=== PATIENT | female | born 1940 | race African-American/Black ===

== ENCOUNTER 2022-03-04 17:56 | Emergency (ER) | payer OTHER ==
--- OUTSIDE RECORDS SUMMARY | 2022-03-04 18:12 | XMS REPORT | Continuity of Care Document ---
:1940 Author Organization [facility] t Address [address] [place] [address] Care Team Providers Name Role Phone Jacob Pugh Primary Care Physician Everett Ac MD Attending Clinician EVERETT AC Attending Clinician Unavailable EVERETT AC Attending Clinician Unavailable Doctor Unassigned, [place] Attending Clinician Unavailable Payers Payer Name Policy Type Policy Number Effective Date Expiration Date S ource Problems Condition Condition Condition Status Onset Resolution Last Treating Co mments Source Name Details Category Date Date Treatment Clinician Date No known No known Disease Unive rs active active ity of problems problems [facility] Allergies, Adverse Reactions, Alerts This patient has no known allergies or adverse reactions. Social History Social Habit Start Date Stop Date Quantity Comments Source Exposure to 2021-07-24 2021-08-23 Not sure [facility] SARS-CoV-2 (event) 00:00:00 09:06:00 Medica l Branch Sex Ass[birth year] At [birth year] [facility] 00:00:00 00:00:00 Medical Branch Smoking Status Start Date Stop Date Source Tobacco smoking consumption [facility] Medical unknown Branch Medications Ordered Filled Start Stop Current Ordering Indication Dosage Frequency Signature Comments Components Source Medication Medication Date Date Medication? Clinician (SIG) Name Name diclofenac Yes 50mg Take 1 Unive rs 50 mg EC 8-09 tablet by ity of tablet 00:00: mouth in [place] 00 the Medical morning Branch and 1 tablet in the evening. DICLOFENAC Yes [id number] TAKE 1 Univers 50 mg 7-25 [id number] TABLET BY ity of tablet 00:00: MOUTH 00 TWICE Medical DAILY Branch DICLOFENAC 2021-0 Yes [id number] TAKE 1 Univers 50 mg 7-25 [id number] TABLET BY ity of tablet 00:00: MOUTH TWICE Medical DAILY Branch diclofenac 2021-0 Yes [id number] 50mg Take 1 Univers 50 mg 4-12 [id number] tablet by ity of tablet 00:00: mouth 2 [place] 00 (two) Medical times Branch daily. diclofenac 2021-0 Yes [id number] 50mg Take 1 Univers 50 mg 4-12 [id number] tablet by ity of tablet 00:00: mouth 2 [place] 00 (two) Medical times Branch daily. diclofenac 2021-0 2022- No [id number] 50mg Take 1 Univers 50 mg 4-12 07-25 [id number] tablet by ity of tablet 00:00: 00:00 mouth 2 [place] 00 :00 (two) Medical times Branch daily. COMBIGAN 2021-0 Yes Univers 0.2-0.5 % 4-08 ity of ophthalmic 00:00: [place] drops 00 Medical Branch COMBIGAN 2021-0 Yes Univers 0.2-0.5 % 4-08 ity of ophthalmic 00:00: [place] drops 00 Medical Branch COMBIGAN 2021-0 Yes Univers 0.2-0.5 % 4-08 ity of ophthalmic 00:00: [place] drops 00 Medical Branch COMBIGAN 2021-0 Yes Univers 0.2-0.5 % 4-08 ity of ophthalmic 00:00: [place] drops 00 Medical Branch gabapentin 2021-0 Yes 300mg Take 300 Un [place] 300 mg 3-07 mg by ity of capsule 00:00: mouth at [place] [address] bedtime. Medical Branch gabapentin 2021-0 Yes 300mg Take 300 Un [place] 300 mg 3-07 mg by ity of capsule 00:00: mouth at [place] [address] bedtime. Medical Branch gabapentin 2021-0 Yes 300mg Take 300 Un [place] 300 mg 3-07 mg by ity of capsule 00:00: mouth at [place] [address] bedtime. Medical Branch gabapentin 2021-0 Yes 300mg Take 300 Un [place] 300 mg 3-07 mg by ity of capsule 00:00: mouth at [place] [address] bedtime. Medical Branch guanFACINE 2021-0 Yes 2mg Take 2 mg Un [place] 2 mg tablet 2-22 by mouth ity of 00:00: every [place] [address] morning. Medical Branch guanFACINE 2021-0 Yes 2mg Take 2 mg Un [place] 2 mg tablet 2-22 by mouth ity of 00:00: every [place] 00 morning. Medical Branch guanFACINE 2021-0 Yes 2mg Take 2 mg Un [place] 2 mg tablet 2-22 by mouth ity of 00:00: every [place] 00 morning. Medical Branch guanFACINE 2021-0 Yes 2mg Take 2 mg Un [place] 2 mg tablet 2-22 by mouth ity of 00:00: every [place] 00 morning. Medical Branch atorvastati Yes 40mg Take 40 mg Univers n 40 mg 2-14 by mouth ity of tablet 00:00: every [place] morning. Medical Branch atorvastati 0 Yes 40mg Take 40 mg Univers n 40 mg 2-14 by mouth ity of tablet 00:00: every [place] morning. Medical Branch atorvastati 2021-0 Yes 40mg Take 40 mg Univers n 40 mg 2-14 by mouth ity of tablet 00:00: every [place] morning. Medical Branch atorvastati 0 Yes 40mg Take 40 mg Univers n 40 mg 2-14 by mouth ity of tablet 00:00: every [place] morning. Medical Branch Vital Signs Vital Name Observation Time Observation Value Comments Source Systolic blood 2021-08-23 15:18:00 157 [facility]Hg[facility] pressure [facility] Diastolic blood 2021-08-23 15:18:00 74 mm[Hg] [facility] pressure [facility] Heart rate 2021-08-23 14:17:00 73 /min [facility] Body height 2021-08-23 14:17:00 157.5 cm [facility] Body weight 2021-08-23 14:17:00 61.236 kg [facility] BMI 2021-08-23 14:17:00 24.69 kg/m2 [facility] Oxygen saturation 2021-08-23 14:17:00 100 /min [facility] in Arterial blood Medical Br anch by Pulse oximetry Procedures This patient has no known procedures. Encounters Start End Encounter Admission Attending Care Care Encounter Source Date/Time Date/Time Type Type Clinicians Facility Department ID 2021-12-20 2021-12-20 Telephone Osorio [facility] [id number] [id number] Univers 00:00:00 00:00:00 [facility] [id number] ity of [place] [id number] Manuel as JAROD?BLEA [id number] [address] OFFICE [facility] 2021-12-03 2021-12-03 [facility] [id number] Univers 00:00:00 00:00:00 [facility] [id number] ity of [place] [id number] Manuel as JAROD?BLEA [id number] [address] 2021-10-17 2021-10-17 [facility] [id number] Univers 00:00:00 00:00:00 [facility] [id number] ity of [place] [id number] Manuel as JAROD?BLEA [id number] [address] 2021-08-26 2021-08-26 Telephone Osorio [facility] [id number] [facility] 00:00:00 00:00:00 [facility] [id number] ity of [place] [id number] Manuel as JAROD?BLEA [id number] [address] 2021-08-23 2021-08-23 Outpatient R EVERETT AC [facility] [id number] Univers 09:20:00 10:07:42 EVERETT AC ity of [facility] 2021-08-23 2021-08-23 Office Osorio [facility] [id number] Univers 09:20:00 10:07:42 Visit [facility] [id number] ity of [place] [id number] Manuel as JAROD?BLEA [id number] [address] OFFICE BUILDING 2021-08-23 2021-08-23 Orders Doctor MAGGIE [id number] [id number] Univers 00:00:00 00:00:00 Only Unassigned, GABE [id number] ity of [place] [facility] [id number] Manuel as [id number] [place] [address] Branch Results This patient has no known results.
[2022-03-04] MEDS ORDERED: ONDANSETRON 4 MG (ODT) TAB ONE (18:14)
[2022-03-04] MEDS ORDERED: MORPHINE 4 MG/ML SYR ONE (18:14)
[2022-03-04] MEDS ORDERED: GABAPENTIN 100 MG CAP ONE (19:51)
--- NOTE | 2022-03-04 19:51 | ER ---
Nurse's Notes [facility] Name: Madison Henley Age: 81 yrs Sex: Female : 1940 Arrival Date: 03/04/2022 Time: 17:59 Bed 13 Private MD: Jacob Suggs V Diagnosis: Herpes Zoster Presentation: 03/04 18:06 Chief complaint: Shingles rash on left face, neck and arm x 3 weeks, reports pain has hb become severe, despite Neurontin, Tramadol, valacyclovir, and dexmathasone. Coronavirus screen: At this time, the client does not indicate any symptoms associated with coronavirus-19. Ebola Screen: No symptoms or risks identified at this time. Initial Sepsis Screen: Does the patient meet any 2 criteria? No. Patient's initial sepsis screen is negative. Does the patient have a suspected source of infection? No. Patient's initial sepsis screen is negative. Risk Assessment: Do you want to hurt yourself or someone else? Patient reports no desire to harm self or others. Onset of symptoms was February 2022. 18:06 Method Of Arrival: Ambulatory hb 18:06 Acuity: SIMONE 3 hb Historical: - Allergies: 18:08 No Known Allergies; hb - Immunization history:: Adult Immunizations up to date. - Social history:: Smoking status: Patient denies any tobacco usage or history of. Screenin:15 Abuse screen: Denies threats or abuse. Denies injuries from another. Nutritional ko1 screening: No deficits noted. Tuberculosis screening: No symptoms or risk factors identified. Fall Risk None identified. Assessment: 18:15 General: Appears distressed, uncomfortable, Behavior is calm, cooperative, appropriate ko1 for age. Pain: Complains of pain in left sternocleidomastoid, left lateral aspect of neck and throat shingles breakout. Neuro: No deficits noted. Cardiovascular: No deficits noted. Respiratory: No deficits noted. GI: No deficits noted. : No deficits noted. EENT:. Derm: No deficits noted. Derm: shingles outbreak on neck. Musculoskeletal: No deficits noted. Vital Signs: 18:06 BP 175 / 91; Pulse 100; Resp 20; Temp 98.7; Pulse Ox 97% on R/A; Weight 49.9 kg; Height hb 5 ft. 3 in. (160.02 cm); Pain 10/10; 18:15 BP 142 / 82; Pulse 99; Resp 18; Pulse Ox 96% on R/A; Pain 10/10; ko1 19:47 BP 149 / 80; Pulse 65; Resp 19; Pulse Ox 95% on R/A; ke1 18:06 Body Mass Index 19.49 (49.90 kg, 160.02 cm) ED Course: 17:59 Patient arrived in ED. mr 18:00 Jacob Suggs MD is Private Physician. mr 18:04 Meet Bender [facility] 18:04 Den Giang MD is Attending Physician. [facility] 18:05 Ailyn Ballesteros, RN is Primary Nurse. ko1 18:08 Triage completed. hb 18:08 Arm band placed on. hb 18:15 Patient has correct armband on for positive identification. Bed in low position. Call ko1 light in reach. Side rails up X 1. Adult w/ patient. 19:57 Attending Physician role handed off by Den Giang MD [facility] 19:57 Sven Owusu MD is Attending Physician. [facility] 20:09 No provider procedures requiring assistance completed. Patient did not have IV access ke1 during this emergency room visit. Administered Medications: 18:21 Drug: morphine 4 mg Route: IM; Site: right gluteus; ko1 18:21 Drug: Ondansetron 4 mg Route: PO; ko1 19:59 Drug: Gabapentin 100 mg Route: PO; ke1 20:10 Follow up: Response: Medication administered at discharge. ke1 19:59 Drug: traMADol 25 mg Route: PO; ke1 20:10 Follow up: Response: Medication administered at discharge. ke1 19:59 Drug: Lidocaine Gel 2 % 1 application Route: Mucous Membrane; ke1 Medication: 20:09 VIS not applicable for this client. ke1 Outcome: 19:50 Discharge ordered by . [facility] 20:09 Discharged to home ambulatory. ke1 20:09 Condition: good 20:09 Discharge instructions given to patient. 20:11 Patient left the ED. ke1 Signatures: Sven Owusu MD MD cha Mickail, Joel, PA PA [facility] AugustMadison mr Violette Palma, DEEPAK SOTELO Lainey León RN RN ke Ailyn Ballesteros RN RN ko1 Corrections: (The following items were deleted from the chart) 18: 18:06 Acuity: SIMONE 4 hb hb 18: 18:06 Chief complaint: Shingles rash on left face, neck and arm x 3 weeks, reports pain hb has become severe. hb
--- NOTE | 2022-03-04 19:51 | EDPHYS ---
Physician Documentation [facility] Name: Madison Henley Age: 81 yrs Sex: Female : 1940 Arrival Date: 03/04/2022 Time: 17:59 Bed 13 Private MD: Jacob Suggs V ED Physician Sven Owusu HPI: 03/04 18:04 This 81 yrs old Black Female presents to ER via Ambulatory with complaints of Shingles. jm 18:04 Onset: The symptoms/episode began/occurred gradually, 3 week(s) ago. This is an [facility] 81-year-old female the presents emergency department with complaints of ongoing pain secondary to shingles. Symptoms initially started 3 weeks ago. Patient is currently on a course of Valtrex, Decadron, gabapentin, tramadol without relief of pain. Patient states that she does not tolerate the gabapentin well due to increased dizziness and sleepiness on the medication.. Historical: - Allergies: 18:08 No Known Allergies; hb - Immunization history:: Adult Immunizations up to date. - Social history:: Smoking status: Patient denies any tobacco usage or history of. ROS: 18:04 Constitutional: Negative for fever, chills, and weight loss, Cardiovascular: Negative jmm for chest pain, palpitations, and edema, Respiratory: Negative for shortness of breath, cough, wheezing, and pleuritic chest pain. 18:04 Skin: Positive for rash. 18:04 All other systems are negative. Exam: 18:04 Constitutional: This is a well developed, well nourished patient who is awake, alert, jmm and in no acute distress. Head/Face: atraumatic. Eyes: EOMI, no conjunctival erythema appreciated ENT: Moist Mucus Membranes 18:04 Chest/axilla: Normal chest wall appearance and motion. Cardiovascular: Regular rate and rhythm. No edema appreciated Respiratory: Normal respirations, no respiratory distress appreciated Abdomen/GI: Non distended Back: Normal ROM 18:04 Neck: Healing herpetic lesions noted to the left side of the neck. 18:04 Skin: Vesicular lesions noted to the left side of the neck. 18:04 Neuro: Orientation: is normal, Mentation: is normal, Memory: is normal. Vital Signs: 18:06 BP 175 / 91; Pulse 100; Resp 20; Temp 98.7; Pulse Ox 97% on R/A; Weight 49.9 kg; Height hb 5 ft. 3 in. (160.02 cm); Pain 10/10; 18:15 BP 142 / 82; Pulse 99; Resp 18; Pulse Ox 96% on R/A; Pain 10/10; ko1 19:47 BP 149 / 80; Pulse 65; Resp 19; Pulse Ox 95% on R/A; ke1 18:06 Body Mass Index 19.49 (49.90 kg, 160.02 cm) hb MDM: 18:04 Patient medically screened. [facility] 19:38 Data reviewed: vital signs, nurses notes. Counseling: I had a detailed discussion with khoa the patient and/or guardian regarding: the historical points, exam findings, and any diagnostic results supporting the discharge/admit diagnosis, the need for outpatient follow up, to return to the emergency department if symptoms worsen or persist or if there are any questions or concerns that arise at home. Administered Medications: 18:21 Drug: morphine 4 mg Route: IM; Site: right gluteus; ko1 18:21 Drug: Ondansetron 4 mg Route: PO; ko1 19:59 Drug: Gabapentin 100 mg Route: PO; ke1 20:10 Follow up: Response: Medication administered at discharge. ke1 19:59 Drug: traMADol 25 mg Route: PO; ke1 20:10 Follow up: Response: Medication administered at discharge. ke1 19:59 Drug: Lidocaine Gel 2 % 1 application Route: Mucous Membrane; ke1 Disposition: 03/05 07:16 Co-signature as Attending Physician, Den Giang MD. rn Disposition Summary: 03/04/22 19:50 Discharge Ordered Location: Home jm Condition: Stable [facility] Diagnosis - Herpes Zoster [facility] Followup: [facility] - With: Private Physician - When: 1 - 2 days - Reason: Recheck today's complaints, Continuance of care, Re-evaluation by your physician Discharge Instructions: - Discharge Summary Sheet sheree - Shingles [facility] Forms: - Medication Reconciliation Form [facility] - Thank You Letter [facility] - Antibiotic Education m - Prescription Opioid Use [facility] Prescriptions: - Lidocaine Viscous - apply 1 application by TOPICAL route every 6 hours As needed; 200 milliliter; [facility] Refills: 0, Product Selection Permitted - gabapentin 100 mg Oral capsule - take 1 capsule by ORAL route 3 times per day As needed; 30 capsule; Refills: 0, jmm Product Selection Permitted Signatures: Meet Bender PA PA jmm Nieto, Roman, MD MD rn Baxter, Heather, RN RN Lainey Chavez RN RN ke1 Ailyn Ballesteros RN RN ko1
[2022-03-04] MEDS ORDERED: TRAMADOL HCL 50 MG TAB ONE (19:52)
[2022-03-04 20:15] VITALS: TEMP 98.7
[2022-03-04 20:17] VITALS: BP 149/80; O2SAT 95
== END 2022-03-04 20:11 | disposition home or self-care (01) ==
LOC: ER 17:56
DX: B02.9 Zoster without complications (principal)
CPT/HCPCS: 96372; 99283; Q0162

== ENCOUNTER 2022-03-16 22:35 | Inpatient (IN) | payer OTHER ==
--- OUTSIDE RECORDS SUMMARY | 2022-03-16 22:38 | XMS REPORT | Continuity of Care Document ---
:[address] [facility] t Address [address] [place] [address] Care Team Providers Name Role Phone Jacob Pugh Primary Care Physician Everett Ac MD Attending Clinician EVERETT AC Attending Clinician Unavailable EVEERTT AC Attending Clinician Unavailable Doctor Unassigned, [place] Attending Clinician Unavailable Payers Payer Name Policy Type Policy Number Effective Date Expiration Date S ource Problems Condition Condition Condition Status Onset Resolution Last Treating Co mments Source Name Details Category Date Date Treatment Clinician Date No known No known Disease Unive rs active active ity of problems problems [facility] Allergies, Adverse Reactions, Alerts This patient has no known allergies or adverse reactions. Social History Social Habit Start Date Stop Date Quantity Comments Source Exposure to 2021-07-24 2021-08-23 Not sure [facility] SARS-CoV-2 (event) 00:00:00 09:06:00 Medica l Branch Sex Assigned [birth year] [facility] 00:00:00 00:00:00 Medical Branch Smoking Status Start Date Stop Date Source Tobacco smoking consumption [facility] Medical unknown Branch Medications Ordered Filled Start Stop Current Ordering Indication Dosage Frequency Signature Comments Components Source Medication Medication Date Date Medication? Clinician (SIG) Name Name diclofenac Yes 50mg Take 1 Unive rs 50 mg EC 8-09 tablet by ity of tablet 00:00: mouth in [place] 00 the Medical morning Branch and 1 tablet in the evening. DICLOFENAC Yes [id number] TAKE 1 Univers 50 mg 7-25 10149 TABLET BY ity of tablet 00:00: MOUTH 00 TWICE Medical DAILY Branch DICLOFENAC 2021-0 Yes [id number] TAKE 1 Univers 50 mg 7-25 27768 TABLET BY ity of tablet 00:00: MOUTH TWICE Medical DAILY Branch diclofenac 2021-0 Yes [id number] 50mg Take 1 Univers 50 mg 4-12 [id number] tablet by ity of tablet 00:00: mouth 2 [place] 00 (two) Medical times Branch daily. diclofenac 2021-0 Yes [id number] 50mg Take 1 Univers 50 mg 4-12 [id number] tablet by ity of tablet 00:00: mouth 2 [place] 00 (two) Medical times Branch daily. diclofenac 2021-0 2022- No [id number] 50mg Take 1 Univers 50 mg 4-12 07-25 [id number] tablet by ity of tablet 00:00: 00:00 [...] by ity of capsule 00:00: mouth at [place] [address] bedtime. Medical Branch gabapentin 2021-0 Yes 300mg Take 300 Un [place] 300 mg 3-07 mg by ity of capsule 00:00: mouth at [place] [address] bedtime. Medical Branch gabapentin 2021-0 Yes 300mg Take 300 Un [place] 300 mg 3-07 mg by ity of capsule 00:00: mouth at [place] [address] bedtime. Medical Branch gabapentin 2021-0 Yes 300mg Take 300 Un [place] 300 mg 3-07 mg by ity of capsule 00:00: mouth at [place] [address] bedtime. Medical Branch guanFACINE 2021-0 Yes 2mg Take 2 mg Un [place] 2 mg tablet 2-22 by mouth ity of 00:00: every [place] [address] morning. Medical Branch guanFACINE 2021-0 Yes 2mg Take 2 mg Un [place] 2 mg tablet 2-22 by mouth ity of 00:00: every [place] 00 morning. Medical Branch guanFACINE 2021-0 Yes 2mg Take 2 mg Un [place] 2 mg tablet 2-22 by mouth ity of 00:00: every [place] 00 morning. Medical Branch guanFACINE 2021-0 Yes 2mg Take 2 mg Un [place] 2 mg tablet 2-22 by mouth ity of 00:00: every [place] 00 morning. Medical Branch atorvastati Yes 40mg Take 40 mg Univers n 40 mg 2-14 by mouth ity of tablet 00:00: every [place] morning. Medical Branch atorvastati 0 Yes 40mg Take 40 mg Univers n 40 mg 2-14 by mouth ity of tablet 00:00: every [place] morning. Medical Branch atorvastati 2021-0 Yes 40mg Take 40 mg Univers n 40 mg 2-14 by mouth ity of tablet 00:00: every [place] morning. Medical Branch atorvastati 0 Yes 40mg Take 40 mg Univers n 40 mg 2-14 by mouth ity of tablet 00:00: every [place] morning. Medical Branch Vital Signs Vital Name Observation Time Observation Value Comments Source Systolic blood 2021-08-23 15:18:00 157 mm[facility]Hg[facility] pressure [facility] Diastolic blood 2021-08-23 15:18:00 74 mm[Hg] [facility] pressure [facility] Branch Heart rate 2021-08-23 14:17:00 73 /min [facility] Body height 2021-08-23 14:17:00 157.5 cm [facility] Body weight 2021-08-23 14:17:00 61.236 kg [facility] BMI 2021-08-23 14:17:00 24.69 kg/m2 [facility] Oxygen saturation 2021-08-23 14:17:00 100 /min [facility] in Arterial blood Medical Br anch by Pulse oximetry Procedures This patient has no known procedures. Encounters Start End Encounter Admission Attending Care Care Encounter Source Date/Time Date/Time Type Type Clinicians Facility Department ID 2021-12-20 2021-12-20 Telephone Osorio [facility] [id number] [id number] Univers 00:00:00 00:00:00 [facility] [id number] ity of [place] [id number] Manuel as JAROD?BLEA [id number] [address] OFFICE [facility] 2021-12-03 2021-12-03 [facility] 1.2.840.114 [id number] Univers 00:00:00 00:00:00 [facility] [id number] ity of [place] [id number] Manuel as JAROD?BLEA [id number] [address] 2021-10-17 2021-10-17 [facility] [id number] [id number] Univers 00:00:00 00:00:00 [facility] [id number] ity of [place] [id number] Manuel as JAROD?BLEA [id number] [address] 2021-08-26 2021-08-26 Telephone Osorio [facility] [id number] [id number] [facility] 00:00:00 00:00:00 [facility] [id number] ity of [place] [id number] Manuel as JAROD?BLEA [id number] [address] 2021-08-23 2021-08-23 Outpatient R EVERETT AC [facility] [id number] Univers 09:20:00 10:07:42 EVERETT AC ity of [facility] 2021-08-23 2021-08-23 Office Osorio [facility] [id number] [id number] Univers 09:20:00 10:07:42 Visit [facility] [id number] ity of [place] [id number] Manuel as JAROD?BLEA [id number] [address] OFFICE BUILDING 2021-08-23 2021-08-23 Orders Doctor MAGGIE 1.2.840.114 [id number] Univers 00:00:00 00:00:00 Only Unassigned, GABE [id number] ity of [place] [facility] [id number] Manuel as [id number] [place] [address] Branch Results This patient has no known results.
[2022-03-17] MEDS ORDERED: ACETAMINOPHEN 500 MG TAB ONE (00:01)
[2022-03-17] MEDS ORDERED: CEFTRIAXONE 1000 MG/VIAL ONE (00:02)
[2022-03-17] MEDS ORDERED: NA CHLORIDE 0.9% 1,000 ML ONE (00:02)
[2022-03-17] MEDS ORDERED: NA CHLORIDE 0.9% 50 ML IV ONE (00:02)
[2022-03-17 00:08] LABS: Absolute Lymphocytes (CBC) 0.9 K/uL (0.7-4.9); Hematocrit 39.6 % (36.0-45.0); Lymphocytes % 6.7 % (15.3-44.8); MCV 88.3 fL (80-100); MPV 9.4 fL (7.6-11.3); RBC Red Blood Cell Count 4.49 M/uL (3.86-4.86)
[2022-03-17 06:41] LABS: Protime INR 1.16
--- NOTE | 2022-03-17 06:49 | ER ---
Nurse's Notes Formerly [facility] Name: Madison Henley Age: 81 yrs Sex: Female : 1940 Arrival Date: 03/16/2022 Time: 22:41 Bed 2 Private MD: Diagnosis: Dehydration;Fever, unspecified Presentation: 03/16 22:57 Chief complaint: Patient's son or daughter states: pt has shingles and has been bb medicated by Dr Suggs for the pain with lyrica and tramadol for 2 weeks. Pt has been mildly "sedated" per her daughter but pt's status seems to have changed she is not eating or drinking much and seems to be dropping her head more. Coronavirus screen: At this time, the client does not indicate any symptoms associated with coronavirus-19. Ebola Screen: No symptoms or risks identified at this time. Initial Sepsis Screen: Does the patient meet any 2 criteria? Temp <36.0*C (96.8*F)) or > 38.3*C (100.9*F). Altered Mental Status. HR > 90 bpm. Yes Does the patient have a suspected source of infection? Yes: Productive cough/pneumonia If YES to both, name of provider notified: Tarun Gutierrez MD. Risk Assessment: Do you want to hurt yourself or someone else? Patient reports no desire to harm self or others. Onset of symptoms was March 16, 2022. 22:57 Method Of Arrival: Wheelchair bb 22:57 Acuity: SIMONE 2 bb Triage Assessment: 03/17 09:09 General: Appears ill, Behavior is cooperative, appropriate for age. Pain: Denies pain. ll1 Historical: - Allergies: 03/16 23:01 No Known Allergies; bb - Immunization history:: Sahra and Moderna. - Social history:: Smoking status: Patient denies any tobacco usage or history of. Screenin/04 00:06 Abuse screen: Denies threats or abuse. Nutritional screening: No deficits noted. vc1 Tuberculosis screening: No symptoms or risk factors identified. Fall Risk None identified. Assessment: 01:00 Reassessment: Patient and/or family updated on plan of care and expected duration. Pain vc1 level reassessed. General: Appears in no apparent distress. ill, slender, Behavior is calm, cooperative, appropriate for age. 02:00 Reassessment: No changes from previously documented assessment. Patient and/or family vc1 updated on plan of care and expected duration. Pain level reassessed. 04:07 Reassessment: No changes from previously documented assessment. Patient and/or family as6 updated on plan of care and expected duration. Pain level reassessed. 06:04 Reassessment: Patient and/or family updated on plan of care and expected duration. Pain vc1 level reassessed. Patient states symptoms have improved. 07:05 Reassessment: No changes from previously documented assessment. Report received from ll1 aquatics assistant department head RN. 08:00 Reassessment: No changes from previously documented assessment. Patient and/or family ll1 updated on plan of care and expected duration. Pain level reassessed. 08:49 Reassessment: No changes from previously documented assessment. Patient and/or family ll1 updated on plan of care and expected duration. Pain level reassessed. Vital Signs: 03/16 22:57 BP 135 / 94; Pulse 128; Resp 16 S; Temp 100.9(O); Pulse Ox 95% on R/A; Weight 53.07 kg bb (R); Height 5 ft. 2 in. (157.48 cm) (R); 03/17 00:00 BP 127 / 96; Pulse 128; Resp 22; Pulse Ox 95% on R/A; vc1 01:00 Temp 100.0(O); vc1 01:15 BP 143 / 91; Pulse 114; Resp 21; Temp 100; Pulse Ox 96% on R/A; vc1 02:00 BP 119 / 71; Pulse 105; Resp 25; Pulse Ox 96% ; vc1 03:34 BP 143 / 83; Pulse 95; Resp 19 S; Pulse Ox 96% on R/A; as6 04:06 BP 128 / 84; Pulse 97; Resp 20; Pulse Ox 95% on R/A; as6 04:15 Temp 98.5(O); vc1 06:04 BP 115 / 86; Pulse 93; Resp 18; Pulse Ox 97% on R/A; vc1 08:45 BP 135 / 82; Pulse 89; Resp 17; Temp 97.7; Pulse Ox 95% on R/A; ll1 03/16 22:57 Body Mass Index 21.40 (53.07 kg, 157.48 cm) ED Course: 03/16 22:41 Patient arrived in ED. am2 22:47 Tarun Gutierrez MD is Attending Physician. bs3 23:01 Triage completed. bb 23:01 Arm band placed on Patient placed in an exam room, on a stretcher, on security monitor, bb on pulse oximetry. Family accompanied patient. 23:02 Candy Trent, RN is Primary Nurse. vc1 23:34 XRAY Chest (1 view) In Process Unspecified. EDMS 03/17 00:05 Influenza Screen (a \\T\\ B) Sent. vc1 00:06 Protime (+inr) Sent. vc1 00:06 Ptt, Activated Sent. vc1 00:06 CMP Sent. vc1 00:06 CBC with Diff Sent. vc1 00:06 Troponin HS Sent. vc1 00:07 Patient has correct armband on for positive identification. Placed in gown. Bed in low vc1 position. Call light in reach. Client placed on continuous cardiac and pulse oximetry monitoring. NIBP monitoring applied. 05:58 Attending Physician role handed off by Tarun Gutierrez MD rn 05:58 Den Giang MD is Attending Physician. rn 06:48 Jacob Suggs MD is Hospitalizing Provider. rn 08:45 IV is patent, 22 G R AC. ll1 08:49 No provider procedures requiring assistance completed. Patient admitted, IV remains in ll1 place. Administered Medications: 00:05 Drug: Tylenol 500 mg Route: PO; vc1 01:00 Follow up: Temp 100.0 Oral; Response: No adverse reaction; Marked relief of symptoms; vc1 Temperature is decreased 01:00 Drug: NS 0.9% 500 ml Route: IV; Rate: bolus; Site: left antecubital; vc1 09:10 Follow up: IV Status: Completed infusion; IV Intake: 500ml ll1 01:00 Drug: Rocephin (cefTRIAXone) 1 grams Route: IV; Rate: bolus; Site: left antecubital; vc1 09:10 Follow up: Response: No adverse reaction; IV Status: Completed infusion; IV Intake: [id number] Medication: 00:07 VIS not applicable for this client. vc1 Intake: 09:10 IV: 500ml; Total: 500ml. ll1 09:10 IV: 50ml; Total: 550ml. ll1 Outcome: 06:48 Decision to Hospitalize by Provider. rn 09:09 Admitted to Med/surg accompanied by nurse, via stretcher, room Rm 214, with chart, 1 Report called to Jose Odom RN on 06 22:09 Condition: stable 09:09 Instructed on the need for admit. 09:32 Patient left the ED. 1 Signatures: Dispatcher [employer] EDMS Rosie Escalante RN RN bb Den Giang MD MD rn Moreno, Amanda am2 Lewis, Lynsay, RN RN ll1 Andriy Vogt RN RN as6 Candy Trent RN RN vc1 Tarun Gutierrez MD MD bs3
--- NOTE | 2022-03-17 06:49 | EDPHYS ---
Physician Documentation [facility] Name: Madison Henley Age: 81 yrs Sex: Female : 1940 Arrival Date: 03/16/2022 Time: 22:41 Bed 2 Private MD: ED Physician Den Giang HPI: 03/16 23:18 This 81 yrs old Black Female presents to ER via Wheelchair with complaints of weakness. 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, hypertension, neuropathy bs3 recently treated for a complicated course of zoster who presents with progressive weakness for the past approximately 2 weeks she was started on gabapentin and then changed to pregabalin thinking that her weak and this was secondary to her new medications however she becomes weaker and weaker at baseline she has a very mild appetite but now she is not eating and drinking very much the patient notes that she feels weak and tired and cannot get up she also notes chronic pain where her rashes no chest pain shortness of breath or abdominal pain symptoms are moderate intensity progressive over time. Historical: - Allergies: 23:01 No Known Allergies; bb - Immunization history:: Sahra and Moderna. - Social history:: Smoking status: Patient denies any tobacco usage or history of. ROS: 23:18 Constitutional: Negative for fever, chills Cardiovascular: Negative for chest pain, bs3 palpitations, and edema, Respiratory: Negative for shortness of breath, cough, wheezing 23:18 All other systems are negative. Exam: 23:18 Constitutional: Patient appears frail but calm in bed she is weak Head/Face: bs3 Normocephalic, atraumatic. Eyes: Pupils equal round and reactive to light, extra-ocular motions intact. Lids and lashes normal. Conjunctiva pallor ENT: Dry mucous membranes dry tongue Neck: Trachea midline, no thyromegaly, no neck stiffness Chest/axilla: Normal chest wall appearance and motion. Nontender with no deformity. No lesions are appreciated. Cardiovascular: Tachycardic normal S1-S2 Respiratory: Lungs have equal breath sounds bilaterally, clear to auscultation, no respiratory distress Abdomen/GI: Soft, non-tender, no rebound or guarding Back: No spinal tenderness. No costovertebral tenderness. Full range of motion. MS/ Extremity: Pulses equal, no cyanosis. Neurovascular intact. Full, normal range of motion. Neuro: Awake and alert, GCS 15, oriented to person, place, time, and situation. Cranial nerves II-XII grossly intact. Motor strength 5/5 in all extremities. Sensory grossly intact. 23:25 Neuro: pt oriented to place and month, she knows her children are here, she has poor bs3 strength, but equal without any focal deficits. Vital Signs: 22:57 BP 135 / 94; Pulse 128; Resp 16 S; Temp 100.9(O); Pulse Ox 95% on R/A; Weight 53.07 kg bb (R); Height 5 ft. 2 in. (157.48 cm) (R); 03/17 00:00 BP 127 / 96; Pulse 128; Resp 22; Pulse Ox 95% on R/A; vc1 01:00 Temp 100.0(O); vc1 01:15 BP 143 / 91; Pulse 114; Resp 21; Temp 100; Pulse Ox 96% on R/A; vc1 02:00 BP 119 / 71; Pulse 105; Resp 25; Pulse Ox 96% ; vc1 03:34 BP 143 / 83; Pulse 95; Resp 19 S; Pulse Ox 96% on R/A; as6 04:06 BP 128 / 84; Pulse 97; Resp 20; Pulse Ox 95% on R/A; as6 04:15 Temp 98.5(O); vc1 06:04 BP 115 / 86; Pulse 93; Resp 18; Pulse Ox 97% on R/A; vc1 08:45 BP 135 / 82; Pulse 89; Resp 17; Temp 97.7; Pulse Ox 95% on R/A; ll1 03/16 22:57 Body Mass Index 21.40 (53.07 kg, 157.48 cm) bb Procedures: 01:00 Performed ecg. ecg sinus [address] elevation or depression qtc 392. bs3 MDM: 03/16 22:47 Patient medically screened. bs3 23:18 Data reviewed: vital signs, nurses notes, EKG. ED course: . 81-year-old with bs3 generalized weakness in the setting of treatment for zoster possibly medication related however patient is febrile here and tachycardic will evaluate for sepsis,patient is clinically dehydrated we will give IV fluid bolus we will give antibiotics Will evaluate for electrolyte abnormality she has no focal deficits and moves all her extremities although is weak unlikely cerebrovascular accident I discussed the case with Dr. Suggs . 03/17 06:47 Differential Diagnosis: electrolyte abnormality, hypoglycemia, UTI, volume depletion. rn Counseling: I had a detailed discussion with the patient and/or guardian regarding: the historical points, exam findings, and any diagnostic results supporting the discharge/admit diagnosis, lab results, the need for further work-up and treatment in the hospital. Response to treatment: the patient's symptoms have mildly improved after treatment, and as a result, I will admit patient. Admission orders: after a detailed discussion of the patient's condition and case, the admit orders are written by me. ED course: Signed out to me by Dr. Gutierrez, patient sent in by Dr. Suggs for admission for dehydration and pain from shingles. . 03/16 23:15 Order name: CBC with Diff; Complete Time: 00:44 bs3 03/16 23:15 Order name: Troponin HS; Complete Time: 07:19 bs3 03/16 23:15 Order name: CMP; Complete Time: 07:19 bs3 03/16 23:15 Order name: Blood Culture Adult (2) bs3 03/16 23:15 Order name: Lactate; Complete Time: 01:46 bs3 03/16 23:15 Order name: Protime (+inr); Complete Time: 06:48 bs3 03/16 23:15 Order name: Ptt, Activated; Complete Time: 06:48 bs3 03/16 23:15 Order name: Influenza Screen (a \T\ B); Complete Time: 01:46 bs3 03/17 00:14 Order name: SARS-COV-2 RT PCR; Complete Time: 01:46 EDMS 03/16 23:15 Order name: XRAY Chest (1 view) bs3 03/16 23:15 Order name: EKG; Complete Time: 23:16 bs3 03/16 23:15 Order name: Cardiac monitoring; Complete Time: 00:06 bs3 03/16 23:15 Order name: EKG - Nurse/Tech; Complete Time: 01:21 bs3 03/16 23:15 Order name: IV Saline Lock; Complete Time: 00:06 bs3 03/17 08:41 Order name: Regular EDMS 03/17 08:41 Order name: Basic Metabolic Panel EDMS 03/17 08:41 Order name: Basic Metabolic Panel EDMS 03/17 08:41 Order name: CBC with Automated Diff EDMS 03/17 08:41 Order name: CBC with Automated Diff EDMS 03/17 08:41 Order name: Troponin High Sensitivity EDMS 03/17 08:41 Order name: Troponin High Sensitivity EDMS 03/17 08:41 Order name: Troponin High Sensitivity EDMS 03/16 23:15 Order name: Labs collected and sent; Complete Time: 00:06 bs3 03/16 23:15 Order name: O2 Per Protocol; Complete Time: 00:06 bs3 03/16 23:15 Order name: O2 Sat Monitoring; Complete Time: 00:06 bs3 03/16 23:15 Order name: Accucheck; Complete Time: 01:21 bs3 03/16 23:15 Order name: Cardiac monitoring; Complete Time: 00:06 bs3 03/16 23:15 Order name: IV Saline Lock - Large Bore; Complete Time: 00:05 bs3 03/16 23:15 Order name: Vital Signs; Complete Time: 00:05 bs3 Administered Medications: 00:05 Drug: Tylenol 500 mg Route: PO; vc1 01:00 Follow up: Temp 100.0 Oral; Response: No adverse reaction; Marked relief of symptoms; vc1 Temperature is decreased 01:00 Drug: NS 0.9% 500 ml Route: IV; Rate: bolus; Site: left antecubital; vc1 09:10 Follow up: IV Status: Completed infusion; IV Intake: 500ml ll1 01:00 Drug: Rocephin (cefTRIAXone) 1 grams Route: IV; Rate: bolus; Site: left antecubital; vc1 09:10 Follow up: Response: No adverse reaction; IV Status: Completed infusion; IV Intake: [id number] Disposition Summary: 03/17/22 06:48 Hospitalization Ordered Hospitalization Status: Observation rn Provider: Jacob Suggs rn [facility] rn Condition: Stable rn Problem: new rn Symptoms: have improved rn Bed/Room Type: Standard rn Room Assignment: 214(03/17/22 08:40) dw Diagnosis - Dehydration rn - Fever, unspecified rn Forms: - Medication Reconciliation Form rn - SBAR form rn Signatures: Dispatcher [employer] Kandi Alvarado RN RN Rosie Islas, RN RN bb Den Giang MD MD rn Calcote, Vanessa, RN RN vc1 Tarun Gutierrez MD MD bs3 Juan Carlos Pittman RN ll1 Corrections: (The following items were deleted from the chart) 00:14 03/16 23:16 UA MICROSCOPIC+U.LAB.BRZ ordered. EDMS EDMS 03/17 08:40 06:48 rn dw 08:41 03/16 23:17 Urine Microscopic Only ordered. EDMS EDMS
[2022-03-17 06:53] LABS: Albumin 2.4 g/dL (3.4-5.0); Bilirubin Total 0.7 mg/dL (0.2-1.0); Potassium 4.3 mmol/L (3.5-5.1)
[2022-03-17 06:56] LABS: Troponin High Sensitivity 93.8 pg/mL (<58.9)
[2022-03-17] MEDS ORDERED: ONDANSETRON 4 MG/2 ML VIAL IV PRN (08:39)
[2022-03-17] MEDS: NA CHLORIDE 0.9% 1,000 ML IV SCH ×2 (10:02→19:58)
--- NOTE | 2022-03-17 14:33 | P.SSS ---
Patient History Date of Service: 03/17/22 Reason for admission: WEAK, SEVERE SHINGLES, NOT EATING WELL. History of Present Illness: RAMONA HAS HAD ONE OF THE SEVERE CASES OF SHINGLES L SIDE NECK AND SHOULDER FOR THAT SHE HAS GOTTEN VALTREX, GABAPENTIN AND STEROIDS WITH MARGINAL HELP. SHE CONSTANTLY CLAWS THE AREA. I REMOVED NECROTIC SKIN A FEW DAYS AGO. SHE HAS NOT BEEN EATING AND DRINKING WELL AND SO I ASKED HER TO COME HERE FOR DEHYDRATION. Allergies No Known Allergies Allergy (Unverified 03/17/22 08:38) - Past Medical/Surgical History Has patient received pneumonia vaccine in the past: No Diabetic: No -: HTN - Social History Smoking Status: Never smoker Alcohol use: No CD- Drugs: No Caffeine use: Yes Place of Residence: Home Review of Systems 10-point ROS is otherwise unremarkable General: Weakness, Malaise Physical Examination - Vital Signs Temperature: 96.9 F Blood Pressure: 147/82 Pulse: 84 Respirations: 19 Pulse Ox (%): 96 - Physical Exam General: Oriented x3, Cachectic, Moderate distress HEENT: Atraumatic, PERRLA, Mucous membr. moist/pink, EOMI, Sclerae nonicteric Neck: Supple, 2+ carotid pulse no bruit, No LAD, Without JVD or thyroid abnormality Respiratory: Clear to auscultation bilaterally, Normal air movement Cardiovascular: Regular rate/rhythm, Normal S1 S2 Gastrointestinal: Normal bowel sounds, No tenderness Musculoskeletal: No tenderness Integumentary: Other (SKIN ULCERS L SIDE NECK AND CHEST FROM SHINGLES. NO MORE VESICLES. ULCERS ARE DRYING UP. ) Neurological: Normal gait, Normal speech, Normal strength at 5/5 x4 extr, Normal tone, Normal affect Lymphatics: No axilla or inguinal lymphadenopathy - Studies Laboratory Data (last 24 hrs) 03/17/22 06:23: PT 12.8 H, INR 1.16, APTT 24.2 L 03/17/22 06:23: Sodium 132 L, Potassium 4.3, BUN 21 H, Creatinine 1.64 H, Glucose 124 H, Total Bilirubin 0.7, AST 42 H, ALT 32, Alkaline Phosphatase 74 03/16/22 23:45: WBC 13.30 H, Hgb 13.3, Hct 39.6, Plt Count 252 Microbiology Data (last 24 hrs): 03/17/22 00:45 Blood - Blood Anaerobic Blood Culture - Final 03/16/22 23:45 Nasopharnyx Influenza Type A Antigen Screen - Final 03/16/22 23:45 Nasopharnyx Influenza Type B Antigen Screen - Final - Diagnosis (Problem(s)) (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 SHE GETS VERY SOMNOLENT WITH MESD. NEEDS MEDS. CONTINUE GABAPENTIN FOR PAIN. LIDCAIN PATCH L SIDE. (2) Dehydration Current Visit: Yes Status: Acute Plan: IV FLUIDS. LAB IN AM MAY GO HOME IN AM. (3) Bacterial pneumonia Current Visit: Yes Status: Acute Plan: UNCLEAR PICTURE ON CXR LEVAQUIN PO WBC IS MILD HIGH. DISCUSSED WITH DAUGHTER. - Disposition Disposition: ROUTINE DISCHARGE
[2022-03-17] MEDS: ACETAMINOPHEN 500 MG TAB PO PRN (14:58)
--- NOTE | 2022-03-17 16:10 | RAD REPORT ---
EXAM DESCRIPTION: RAD - Chest Single View - 03/16/2022 11:32 pm CLINICAL HISTORY: The patient is 81 years old and is Female; CHEST PAIN TECHNIQUE: Frontal view of the chest. COMPARISON: No relevant prior studies available. FINDINGS: Lungs: Mildly prominent interstitial markings. Pleural space: Left hemidiaphragm is obscured which can be seen with left pleural effusion, as we ll as left lower lobe consolidation or atelectasis. No pneumothorax. Heart: Unremarkable. Mediastinum: Unremarkable. Bones/joints: Unremarkable. Upper abdomen: Elevation of the left hemidiaphragm. IMPRESSION: 1. Mildly prominent interstitial markings. 2. Left hemidiaphragm is obscured which can be seen with left pleural effusion, as well as left low er lobe consolidation or atelectasis. Electronically signed by: Iban Tracy MD 03/16/2022 11:57 PM CDT Due to temporary technical issues with the PACS/Fluency reporting system, reports are being signed by the in house radiologists without review as a courtesy to insure prompt reporting. The interpreting radiologist is fully responsible for the content of the report.
[2022-03-17] MEDS: hydrOXYzine HCL 25 MG TAB PO PRN (19:58)
[2022-03-17] MEDS: PREGABALIN 50 MG CAP PO SCH (19:58)
[2022-03-18 03:50] LABS: Absolute Lymphocytes (CBC) 0.9 K/uL (0.7-4.9); Hematocrit 30.5 % (36.0-45.0); Lymphocytes % 9.1 % (15.3-44.8); MCV 87.8 fL (80-100); MPV 9.3 fL (7.6-11.3); RBC Red Blood Cell Count 3.48 M/uL (3.86-4.86)
[2022-03-18] MEDS: NA CHLORIDE 0.9% 1,000 ML IV SCH ×3 (06:13→17:28)
[2022-03-18] MEDS: ACETAMINOPHEN 500 MG TAB PO PRN ×3 (06:35→18:35)
[2022-03-18] MEDS: hydrOXYzine HCL 25 MG TAB PO PRN ×3 (06:40→18:36)
[2022-03-18] MEDS: LIDOCAINE 4% PATCH TOP SCH (08:30)
[2022-03-18] MEDS: PREGABALIN 50 MG CAP PO SCH ×2 (08:30→21:06)
[2022-03-18] MEDS: levoFLOXacin 250 MG TAB PO SCH (08:30)
[2022-03-18] MEDS ORDERED: PNEUMOCOCCAL VACCINE 0.5 ML IMVAC ONE (12:00)
--- NOTE | 2022-03-18 12:38 | EKG ---
Test Date: 2022-03-17 Test Time: 00:47:25 Apartment Groundskeeper: TRINA MEASUREMENT RESULTS: Intervals: Rate: 120 TX: 148 QRSD: 68 QT: 278 QTc: 392 Knifley: P: 5 TX: 148 QRS: -30 T: -8 INTERPRETIVE STATEMENTS: Sinus tachycardia Left axis deviation Minimal voltage criteria for LVH, may be normal variant Anterior infarct, age undetermined Abnormal ECG Compared to ECG 06/14/2003 11:12:00 Left-axis deviation now present Left ventricular hypertrophy now present Myocardial infarct finding now present Sinus rhythm no longer present Sinus arrhythmia no longer present T-wave abnormality no longer present Electronically Signed On 03-18-22 12:36:01 CDT by Ga Ovalle
--- NOTE | 2022-03-18 18:19 | P.PN ---
Subjective Date of Service: 03/18/22 Chief Complaint: WEAK, SEVERE SHINGLES, NOT EATING WELL. Patient is still drowsy and unable to sit up straight. Family feels her pain is under control. Physical Examination - Vital Signs Temperature: 98.0 F Blood Pressure: 142/75 Pulse: 93 Respirations: 16 Pulse Ox (%): 97 - Physical Exam General: In no apparent distress, Other (Drowsy) HEENT: Mucous membr. moist/pink Neck: Supple, JVD not distended Respiratory: Clear to auscultation bilaterally, Normal air movement Cardiovascular: No edema, Regular rate/rhythm, Normal S1 S2 Gastrointestinal: Normal bowel sounds, Soft and benign, No tenderness Musculoskeletal: No swelling Integumentary: Other (healed rashes and scars on the left lateral neck and ear) Neurological: Normal strength at 5/5 x4 extr - Studies Microbiology Data (last 24 hrs): 03/17/22 00:45 Blood - Blood Aerobic Blood Culture - Final 03/17/22 00:45 Blood - Blood Blood Culture Gram Stain - Final 03/17/22 00:45 Blood - Blood Anaerobic Blood Culture - Final Assessment And Plan - Current Problems (Diagnosis) (1) Postherpetic neuralgia Current Visit: Yes Status: Acute (2) Metabolic encephalopathy Current Visit: Yes Status: Acute (3) Generalized weakness Current Visit: Yes Status: Acute (4) Herpes zoster Current Visit: Yes Status: Chronic - Plan Lyrica reduced to 50 mg twice daily Lidocaine patch applied. Family reports patient is more awake than before. Diet as tolerated Continue physical therapy. Other options for the postherpetic neuralgia are nortriptyline or lamotrigine if Lyrica is more sedating for her.
[2022-03-19] MEDS: NA CHLORIDE 0.9% 1,000 ML IV SCH ×3 (01:00→19:00)
[2022-03-19] MEDS: ACETAMINOPHEN 500 MG TAB PO PRN ×4 (03:15→18:10)
[2022-03-19] MEDS: PREGABALIN 50 MG CAP PO SCH (08:05)
[2022-03-19] MEDS: LIDOCAINE 4% PATCH TOP SCH (08:05)
[2022-03-19] MEDS: levoFLOXacin 250 MG TAB PO SCH (08:05)
--- NOTE | 2022-03-19 15:59 | P.PN ---
Subjective Date of Service: 03/19/22 Chief Complaint: WEAK, SEVERE SHINGLES, NOT EATING WELL. Patient is more awake today and states she feels better. She states her pain is better. She states that she has been able to ambulate with a walker to the bathroom today. Physical Examination - Vital Signs Temperature: 98.2 F Blood Pressure: 142/84 Pulse: 92 Respirations: 16 Pulse Ox (%): 98 Assessment And Plan - Current Problems (Diagnosis) (1) Postherpetic neuralgia Current Visit: Yes Status: Acute (2) Metabolic encephalopathy Current Visit: Yes Status: Acute (3) Generalized weakness Current Visit: Yes Status: Acute (4) Herpes zoster Current Visit: Yes Status: Chronic - Plan Physical Exam General: In no apparent distress, awake and alert. Respiratory: Clear to auscultation bilaterally, Normal air movement Cardiovascular: No edema, Regular rate/rhythm, Normal S1 S2 Gastrointestinal: Normal bowel sounds, Soft and benign, No tenderness Musculoskeletal: No swelling Integumentary: healed rash and scars on the left lateral neck and ear) Neurological: Normal strength at 5/5 x4 extr Plan: Continue current Lyrica dose and lidocaine patch Diet as tolerated Continue physical therapy. Other options for the postherpetic neuralgia are nortriptyline or lamotrigine if Lyrica is more sedating for her. Patient requested to stay 1 more day to make sure she can be functional with her current pain regimen before going home.
[2022-03-19] MEDS ORDERED: TRAMADOL HCL 50 MG TAB PO PRN (18:37)
[2022-03-19] MEDS: PREGABALIN 75 MG CAP PO SCH (21:01)
[2022-03-19] MEDS: hydrOXYzine HCL 25 MG TAB PO PRN (21:01)
--- NOTE | 2022-03-20 00:35 | PN ---
Subjective: Ms. Henley is suffering from severe shingles with the neuralgic pain in left neck and u pper chest area, which has failed to improve on outpatient therapy with the steroids, Valtrex, gabape ntin, tramadol, and hydrocodone, which she did not even use hydrocodone because she was so somnolent with the medications. The patient's family, the daughter, is taking care of her at present. Objective: Vital Signs: Blood pressure 155/85, pulse is 96, temperature 98.5. HEENT: No JVD. No carotid bruits. Clinically she was dehydrated, looking a lot better now. On the left side of the neck and upper chest, is excoriated skin, which is drying up. There are no signs o f any vesicles anymore. No signs of infection in the region. Chest: Clear. Heart: Regular. Abdomen: No guarding, no rebound. No rigidity. Assessment/plan: 1.Severe shingles related to neuralgia pain, intractable pain, needing medications in the hospital. She is on Lyrica and tramadol at this point, some improvement compared to before according to family . 2.Dehydration. Patient has high BUN and creatinine, she came in, she had quit eating and drinking. She was not able to walk anymore. They carried her and brought her to the hospital, so we put her i hospital for IV fluids and has clinically improved, but her oral intake is too poor because she is in so much pain that she does not think about food anymore, and which is why she could. She has cons idered it for inpatient admission and I am not sure whether Medicaid will approve it or not, but kayli lan is going to appeal for inpatient stay until she is able to ambulate properly and eat properly. RVD/MODL Voice ID: [id number] Report ID: [id number]
[2022-03-20] MEDS: NA CHLORIDE 0.9% 1,000 ML IV SCH (01:32)
[2022-03-20 06:34] VITALS: BMI 21.7
[2022-03-20] MEDS ORDERED: AMLODIPINE 5 MG TAB PO SCH (09:00)
[2022-03-20] MEDS: hydrOXYzine HCL 25 MG TAB PO PRN (09:23)
[2022-03-20] MEDS: levoFLOXacin 250 MG TAB PO SCH (09:23)
[2022-03-20] MEDS: PREGABALIN 75 MG CAP PO SCH (09:23)
[2022-03-20] MEDS: LIDOCAINE 4% PATCH TOP SCH (09:23)
[2022-03-20 11:16] VITALS: O2SAT 96
[2022-03-20] MEDS: ACETAMINOPHEN 500 MG TAB PO PRN (14:31)
[2022-03-20 16:00] VITALS: BP 165/88; TEMP 98.1
--- NOTE | 2022-03-20 18:37 | PN ---
Subjective: Ms. Henley has still a significant amount of pain in the left side of neck. She is walking a few steps, about 75 steps with the therapist, but very fatigued. Objective: Vital Signs: Blood pressure 160/88, pulse is 99, temperature 98.3. HEENT: No JVD. No carotid bruits. Left side of the neck and the upper chest have excoriation from severe shingles, she had. The skin is drying now. There are no signs of vesicles and there are no signs of infection. Laboratory Data: BUN and creatinine is improved at 17/0.81 from 21/0.64. Troponin elevation is mild and it is not something I suspect, needed to be done, just because there are no signs of any cardiac issues at this point. Assessment/plan: Severe shingles with intractable pain. I have raised the dose of Lyrica. She cannot tolerate prior medications, has serious problems from the medications and continue lidocaine patch from atypical pneumonia. Continue Levaquin once a day. Prognosis fair. Family is working on taking care of her at home, but currently they are going to appeal for medical decision for observation instead of inpatient. CHERID/MODL Voice ID: [id number] Report ID: [id number] YOSELIN
--- NOTE | 2022-03-22 17:58 | P.DS ---
Admission Date: 03/19/22 Discharge Date: 03/22/22 Disposition: DC HOME/HOME HEALTH CARE Reason for Admission: WEAK, SEVERE SHINGLES, NOT EATING WELL. - Problems (1) Herpes zoster Status: Chronic (2) Dehydration Status: Acute (3) Bacterial pneumonia Status: Acute Brief History of Present Illness: RAMONA HAS HAD ONE OF THE SEVERE CASES OF SHINGLES L SIDE NECK AND SHOULDER FOR THAT SHE HAS GOTTEN VALTREX, GABAPENTIN AND STEROIDS WITH MARGINAL HELP. SHE CONSTANTLY CLAWS THE AREA. I REMOVED NECROTIC SKIN A FEW DAYS AGO. SHE HAS NOT BEEN EATING AND DRINKING WELL AND SO I ASKED HER TO COME HERE FOR DEHYDRATION. Hospital Course: RAMONA FONTAINE HAS SEVERE SHINGLES OF L SIDE NECK AND CHEST. SHE QUIT EATING SO WE HAD TO ADMIT HER AND HYDRATE HER. SHE CAN TOLERATE SMALL DOSE OF LYRICA FOR PAIN BUT SLEEPS A LOT WITH IT. FAMILY DOES NOT WANT TO GIVE EXTRA PAIN MEDS SHE DOES NOT WAKE UP. I ALSO PUT HER ON LIDOCAIN PATCH AND ATARAX FOR ITCHING. SHE IS DOING GOOD AND MEDICARE RELATED AGENCY HAS APPROVED ONLY OBSERVATION FOR HER SO FAMILY IS AWARE THAT THEY CAN APPEAL BUT CHANCES OF APPROVAL ARE LESS. FOR LAST 24 HOURS SHE IS NOT GIVEN ANY IV AND SHE IS ABLE TO EAT SOME. SHE IS ABLE TO GO TO RESTROOM WITH MINIMAL ASSISTANCE. SHE WILL FU AT OFFICE. Vital Signs/Physical Exam: Temp Pulse Resp BP Pulse Ox 98.1 F 100 H 16 165/88 H 96 03/20/22 15:59 03/20/22 15:59 03/20/22 15:59 03/20/22 15:59 03/20/22 15:59 Laboratory Data at Discharge: WBC 10.20 K/uL (4.3-10.9) 03/18/22 03:22 Hgb 10.5 g/dL (12.0-15.0) L D 03/18/22 03:22 Hct 30.5 % (36.0-45.0) L 03/18/22 03:22 Plt Count 232 K/uL (152-406) 03/18/22 03:22 PT 12.8 SECONDS (9.5-12.5) H 03/17/22 06:23 INR 1.16 03/17/22 06:23 APTT 24.2 SECONDS (24.3-36.9) L 03/17/22 06:23 Sodium 137 mmol/L (136-145) D 03/18/22 03:22 Potassium 4.0 mmol/L (3.5-5.1) 03/18/22 03:22 BUN 17 mg/dL (7-18) 03/18/22 03:22 Creatinine 0.81 mg/dL (0.55-1.3) 03/18/22 03:22 Glucose 89 mg/dL (74-106) 03/18/22 03:22 Total Bilirubin 0.7 mg/dL (0.2-1.0) 03/17/22 06:23 AST 42 U/L (15-37) H 03/17/22 06:23 ALT 32 U/L (12-78) 03/17/22 06:23 Alkaline Phosphatase 74 U/L (45-117) 03/17/22 06:23 Home Medications: Amlodipine [Norvasc*] 1 tab PO DAILY 03/18/22 Gabapentin 1 tab PO TID 03/18/22 Tramadol HCl [Ultram] 1 tab PO Q6H PRN 03/18/22 Followup: NONE,NONE [Primary Care Provider] -
== END 2022-03-20 18:09 | disposition home health service (06) | DRG 73 ==
LOC: ER 22:35 → ERHOLD 03-17 08:17 → 2ND 03-17 09:09 → OBSVTOIN 03-19 14:46
PROVIDERS: ADMIT Internal Medicine; ATTEND Internal Medicine
DX: B02.29 Other postherpetic nervous system involvement (principal); G93.41 Metabolic encephalopathy; J15.9 Unspecified bacterial pneumonia; R64 Cachexia; I10 Essential (primary) hypertension; E86.0 Dehydration; L98.499 Non-pressure chronic ulcer of skin of other sites with unspecified severity; Z68.21 Body mass index [BMI] 21.0-21.9, adult; Z91.14 Patient's other noncompliance with medication regimen; Z86.73 Personal history of transient ischemic attack (TIA), and cerebral infarction without residual deficits; Z79.899 Other long term (current) drug therapy; Z20.822 Contact with and (suspected) exposure to COVID-19
CPT/HCPCS: 36415; 71045; 80048; 80053; 83605; 84484; 85025; 85610; 85730; 87040; 87205; 87804; 93005; 96365; 96366; 97116; 97161; 97530; 99285; G0378; J2001; J7030; U0003